=== PATIENT | female | born 2000 | race Caucasian/White ===

== ENCOUNTER 2022-01-07 22:04 | Emergency (ER) | payer BC ==
[2022-01-07 23:15] LABS: ESTIMATED GFR 108 mL/min (>60)
[2022-01-07] MEDS ORDERED: Iopamidol 612 MG/ML 100 ML Bottle IV STA (23:28)
[2022-01-07] MEDS ORDERED: Sodium Chloride 0.9% 50 ML IV STA (23:28)
[2022-01-07] MEDS ORDERED: Sodium Chloride 0.9% 1,000 ML IV SCH (23:45)
== END 2022-01-08 00:58 | disposition home or self-care (01) ==
LOC: JP.ED 22:04
DX: A08.4 Viral intestinal infection, unspecified (principal); Z20.822 Contact with and (suspected) exposure to COVID-19
CPT/HCPCS: 36415; 74177; 80053; 84703; 85025; 86140; 87635; 96360; 96361; 99281; 99284; J3490; J7030; Q9967; U0002